=== PATIENT | female | born 1995 | race Caucasian/White ===

== ENCOUNTER 2023-08-11 15:12 | Emergency (ER) | payer OTHER, SELFPAY ==
--- NOTE | 2023-08-11 15:46 | ED.GENMED ---
History of Present Illness
General
Chief Complaint: Abdominal Symptoms
Source: patient
Exam Limitations: none
Time Seen by Provider: 08/11/23 15:36
Nursing documentation reviewed up to this point in time: agreed with
Travel History
Have you had any contact with someone who has COVID-19?: No
Do you have any symptoms of coronavirus? Fever > 100 degrees, chills, cough, shortness of breath, sore throat, loss of taste or smell, muscle aches, or headache?: No
History of Present Illness
History of Present Illness:
28-year-old female with history of kidney reflux needing urethral implantation at age 4, had a kidney stone at age 16, presents stating she started vomiting at 7 PM last night and vomited numerous times until 430 this a.m. She is also had several
episodes of nonbloody diarrhea. Her legs feel achy. She states her urine output is significantly decreased. She denies nausea now, she was able to eat a bowl of cereal this morning. She denies fever or chills. Denies burning, frequency or
urgency to urinate. Denies abdominal pain.
Past History
Past History
ED Past Medical History: None
ED Past Surgical History: Urological
Social History
Tobacco: Non-smoker
Alcohol: Occasional
Personal: Single
Living: with family
Employment: Not employed (Starting new job next week)
Review of Systems
Review of Systems
Allergies reviewed?: Yes
All Other Systems: ROS reviewed and negative except as documented in HPI and ROS
Constitutional: Denies fever, fatigue or chills
EENT: Denies sore throat
Respiratory: Denies cough or trouble breathing
Cardiac: Denies chest pain
ABD/GI: Reports nausea, vomiting and diarrhea; Denies abdominal pain, bloody stools or black stools
: Reports difficulty voiding (States urine output is significantly decreased today, 'I have to push it out.'); Denies dysuria, frequency, flank pain, incontinence or urgency
Musculoskeletal: Reports other (Generalized muscle aches worse in legs); Denies edema
Skin: Reports no symptoms
Neurological: Reports no symptoms
Phy Exam
Physical Exam
Physical Exam:
GENERAL: No acute distress. A&Ox3.
CONSTITUTIONAL: Afebrile.
EYES: Clear, conjunctivae normal
ENMT: moist mucus membranes, Pharynx nl
RESPIRATORY: Regular respirations, nonlabored, lungs clear.
CARDIOVASCULAR: Regular rate and rhythm, no murmurs, no rubs.
GI: Soft, nontender, normal BS
MUSCULOSKELETAL: Moves with ease. Well perfused.
SKIN: Warm, dry, pink
PSYCH: Normal mood and affect. Well kept, interactive and appropriate
NEUROLOGIC: Awake, alert and oriented. No focal neurological deficits
Course
Orders/Labs/Results
Orders:
Orders
08/11/23 15:45
IV Insert/Care/Rem.- Treatment PRN
0.9% Sodium Chloride 1000 ml [Nss] 1,000 ml IV BOLUS
08/11/23 15:46
Test Result ONCE
08/11/23 15:53
Comprehensive Metabolic Panel Urgent
HCG, Serum Qualitative Screen Urgent
Lipase Urgent
08/11/23 15:54
COVID-19 Antigen Urgent
Source: Nasal Swab
Complete Blood Count/With Diff Urgent
08/11/23 16:38
0.9% Sodium Chloride 1000 ml [Nss] 1,000 ml IV BOLUS
Potassium Chloride [KCl] 20 meq PO NOW STA
08/11/23 16:50
Urinalysis Reflex To Culture Urgent
Date Specimen was Collected: 08/11/23
Time Specimen was Collected: 16:49
CDIFF [C difficile Antigen & Toxins] Urgent
[facility]ADO Source: Feces/Stool
Specimen Description:
Date Specimen was Collected: 08/11/23
Time Specimen was Collected: 16:48
Stool Culture Urgent
[facility]O Source: Feces/Stool
Specimen Description:
Date Specimen was Collected: 08/11/23
Time Specimen was Collected: 16:48
Abnormal Lab Results
08/11/23 08/11/23 08/11/23
15:53 15:54 16:50
Hct 36.9 L %
(37.0-47.0)
MCH 31.9 H pg
(27.0-31.0)
Absolute Neuts (auto) 8.3 H 10^3/uL
(1.4-6.5)
Absolute Monos (auto) 0.7 H 10^3/uL
(0.1-0.6)
Neutrophils % 81.2 H %
(42.2-75.2)
Lymphocytes % 11.3 L %
(20.5-51.1)
Sodium 132 L mmol/L
(135-145)
Potassium 3.3 L mmol/L
(3.5-5.1)
Carbon Dioxide 17 L mmol/L
(22-30)
Glucose 103 H mg/dl
(70-99)
Urine Ketones 1+ A
(Negative)
08/11/23 15:54
08/11/23 15:53
Vital Signs
Initial and Last Documented VS:
Initial Vital Signs
Temp Pulse Resp Pulse Ox
98.8 F 100 16 98
08/11/23 15:14 08/11/23 15:14 08/11/23 15:14 08/11/23 15:14
Last Documented Vital Signs
Temp Pulse Resp BP Pulse Ox
98.8 F 88 16 112/80 98
08/11/23 15:14 08/11/23 17:55 08/11/23 15:14 08/11/23 17:55 08/11/23 15:14
MDM/Problems Addressed
Differential Diagnosis Includes:
Gastroenteritis (bacterial vs viral), Covid, dehydration,
MDM/Problems Addressed:
28-year-old female with history of kidney reflux needing urethral implantation at age 4, had a kidney stone at age 16, presents stating she started vomiting at 7 PM last night and vomited numerous times until 430 this a.m. She is also had several
episodes of nonbloody diarrhea. Her legs feel achy. She states her urine output is significantly decreased. She denies nausea now, she was able to eat a bowl of cereal this morning. She denies fever or chills. Denies burning, frequency or
urgency to urinate. Denies abdominal pain.
Afebrile, NAD
08/11/2023 1632 PM
CBC with no clinically significant abnormality
CMP: K 3.3, Na 132 PO KCL ordered. Bicarb 17 #2 IV Liter NSS ordered
Lipase normal
Covid neg
HCG neg
Pt has had no vomiting, states she is not nauseous.
OOB and ambulated steadily to BR
08/11/2023 1717 PM
UA negative
*Critical Care Note
Total Time (30-74mins, 75-104mins- exclusive of procedures): Not Applicable
ED Attending Note
-
Portions of this chart may have been created with voice recognition software.� Occasional wrong word or��sound alike� substitutions may have occurred due to the inherent limitations of voice recognition software.
Discharge Plan
Departure
Patient Disposition: Home (Routine Discharge)
Date of Disposition: 08/11/23
Time of Disposition: 17:42
Patient with high blood pressure during this ER visit?: No
Condition: Good
Discharge Problem:
Gastroenteritis
Instructions: Diarrhea in adolescents and adults, Nausea and Vomiting, Adult (DC), Viral Gastroenteritis, Adult (DC)
Prescriptions:
New
ondansetron 4 mg tablet,disintegrating
4 mg PO Q8H PRN (Reason: nausea and vomiting) 4 Days Qty: 10 0RF
Referrals:
Your, doctor at [place] [Other] - As needed
Activity Restrictions/Additional Instructions:
As we discussed, you most likely have a GI virus.
your lab work shows mildly low potassium, we gave you a dose here, that should help correct it. Your urine shows no sign of infection.
You most likely have viral gastroenteritis
Stay hydrated with water, Gatorade, Electrolyte infused drinks
Your Covid test is negative
I sent a prescription to your pharmacy for Zofran if needed for nausea
Interventions
Interventions:
*Risk Screen - Suicide Last Done: 08/11/23 16:11
*General Assessment Last Done: 08/11/23 16:11
*Neglect/Abuse Screening Last Done: 08/11/23 16:11
ED- Fall Risk Assessment Last Done: 08/11/23 16:11
*Nursing Disposition Last Done: 08/11/23 17:55
[facility]-Pwpww[facility]-Gwyavlwnzv Assessment Last Done: 08/11/23 16:11
Discharge Date and Time
Discharge Date/Time: 08/11/23 17:55
[2023-08-11 16:04] LABS: % Basophils 0.3 % (0-2); % Immature Granulocytes 0.3 % (0-0.5); % Lymphocytes 11.3 % (20.5-51.1); % Monocytes 6.9 % (1.7-9.3); % Neutrophils 81.2 % (42.2-75.2); Absolute Lymphocytes 1.2 10^3/uL (1.2-3.4); Absolute Monocytes 0.7 10^3/uL (0.1-0.6); Absolute Neutrophils 8.3 10^3/uL (1.4-6.5); Hematocrit 36.9 % (37.0-47.0); Hemoglobin 13.5 g/dL (12.0-16.0); Mean Corp Hgb Conc. 36.6 g/dL (33.0-37.0); Mean Corpuscular Hgb 31.9 pg (27.0-31.0); Mean Corpuscular Volume 87.2 fL (81.0-99.0); Mean Platelet Volume 9.9 fL (7.4-10.4); Nucleated Red Blood Cells % 0 %; Platelet Count 308 10^3/uL (130-400); Red Blood Cell Count 4.23 10^6/uL (4.20-5.40); Red Cell Dist. Width 11.9 % (11.5-14.5); White Blood Cell Count 10.3 10^3/uL (4.8-10.8)
[2023-08-11] MEDS: NSS 1000 IV ×2 (16:08→17:02)
[2023-08-11 16:10] VITALS: BMI 22.3
[2023-08-11 16:11] LABS: HCG, Serum Qualitative Screen Negative
[2023-08-11 16:15] LABS: ALT (SGPT) 27 U/L (0-35); AST (SGOT) 32 U/L (14-36); Albumin 4.2 g/dl (3.5-5.0); Alkaline Phosphatase 66 U/L (38-126); Blood Urea Nitrogen 16 mg/dl (7-17); Carbon Dioxide 17 mmol/L (22-30); Chloride 100 mmol/L (98-107); Estimated Creatinine Clearance 87 ml/min; Glucose 103 mg/dl (70-99); Potassium 3.3 mmol/L (3.5-5.1); Sodium 132 mmol/L (135-145); Total Bilirubin 1.3 mg/dl (0.2-1.3); Total Protein 7.4 g/dl (6.3-8.2); eGFR > 60.00
[2023-08-11 16:27] LABS: COVID-19 Antigen Negative (Negative)
[2023-08-11 16:28] LABS: Lipase 73 U/L (23-300)
[2023-08-11 17:00] LABS: Urine Albumin Negative (Neg - Trace); Urine Bilirubin Negative (Negative); Urine Character Clear (Clear); Urine Color Straw; Urine Glucose Negative (Negative); Urine Ketone 1+ (Negative); Urine Leukocyte Negative (Negative); Urine Nitrite Negative (Negative); Urine Occult Blood Negative (Negative); Urine Urobilinogen Negative (Neg - 1+)
[2023-08-11] MEDS: KCL 20 MEQ PO (17:05)
[2023-08-11 17:20] VITALS: BP 112/80
[2023-08-11 17:55] VITALS: BP 112/80
== END 2023-08-11 17:55 | disposition home or self-care (01) ==
LOC: EMR 15:12
PROVIDERS: Registered Nurse; EMERGENCY PHYSICIAN Emergency Medicine
DX: K52.9 Noninfective gastroenteritis and colitis, unspecified (principal); Z87.442 Personal history of urinary calculi
CPT/HCPCS: 99283; 80053; 81003; 83690; 84703; 85025; 87045; 87046; 87324; 87427; 87449; 87811